=== PATIENT | male | born 1995 | race Caucasian/White ===

== ENCOUNTER 2017-03-30 12:54 | Day surgery (SDC) | payer OTHER ==
[2017-03-30] VITALS (7 sets, daily range): BP systolic 116–122; BP diastolic 62–79; PULSE 50–58; TEMP 97.3–98.2
[~2017-03-30] VITALS: Ht 177.8 cm; Wt 72.9 kg
[2017-03-30] MEDS ORDERED: CIPRO 500MG TA500 MG PO (13:19)
[2017-03-30] MEDS ORDERED: IBU800 M1 PO (13:20)
== END 2017-03-31 02:12 | disposition home or self-care (01) ==
LOC: SDCO 12:54 → JCC 17:15 → SDCO 03-31 02:12
DX: D29.21 Benign neoplasm of right testis (principal)
CPT/HCPCS: OP; J1170; J2405; J2704; J3010; J7120